=== PATIENT | male | born 1985 | race Caucasian/White ===

== ENCOUNTER → 2016-08-27 | Outpatient (CLI) | payer OTHER ==
--- NOTE | 2016-08-27 16:05 | CR ---
EXAMINATION: Left clavicle HISTORY: Fracture COMPARISON: None TECHNIQUE: 2 views FINDINGS/IMPRESSION: There is a comminuted mildly angulated and overlapping mid left clavicle fractu re identified. The remaining visualized osseous structures and joint spaces appear intact. Bone mine ralization is normal.
== END ==
LOC: MW.CHORTHO 11:04
PROVIDERS: ATTEND Orthopaedic Surgery
DX: S42.002A Fracture of unspecified part of left clavicle, initial encounter for closed fracture (principal)
CPT/HCPCS: 73000-26-LT; 73000-LT

== ENCOUNTER 2016-08-30 06:21 | Day surgery (SDC) | payer OTHER ==
[2016-08-30] MEDS ORDERED: Lidocaine 2% 5 ML SDV ONE (07:11)
[2016-08-30] MEDS ORDERED: Propofol 200 MG/20 ML SDV ONE ×2 (07:12→09:40)
[2016-08-30] MEDS ORDERED: fentaNYL 250 MCG/5 ML SDV ONE (07:12)
[2016-08-30] MEDS ORDERED: Midazolam 1 MG/ML 2 ML SDV ONE (07:12)
--- NOTE | 2016-08-30 07:28 | PCM.PREANE ---
Preanesthetic Assessment - Anesthesia/Transfusion/Family Hx Anesthesia History: No Prior Anesthesia Other Type of Anesthesia Reaction Comment: pt was adopted at age 4, does not know family hx Transfusion History: No Prior Transfusion(s) - Review of Systems General: No Symptoms Pulmonary: No Symptoms Cardiovascular: No Symptoms Gastrointestinal: No symptoms Neurological: No Symptoms Other: Reports: None - Physical Assessment O2 Sat by Pulse Oximetry: 99 Respiratory Rate: 16 Vital Signs: Last Vital Signs Temp 36.4 C 08/30/16 06:33 Pulse 69 08/30/16 06:33 Resp 16 08/30/16 06:33 BP 121/80 08/30/16 06:33 Pulse Ox 99 08/30/16 06:33 Height: 1.78 m Weight: 63.503 kg ASA Class: 1 Mental Status: Alert & Oriented x3 Airway Class: Mallampati = 1 Dentition: Reports: Normal Dentition Lungs: Clear to auscultation, Normal respiratory effort Cardiovascular: Regular Rate, Regular Rhythm - Allergies Allergies/Adverse Reactions: Allergies Allergy/AdvReac Type Severity Reaction Status Date / Time No Known Allergies Allergy Verified 08/28/16 14:29 - Blood Blood Available: Yes - Anesthesia Plan Pre-Op Medication Ordered: None - Acknowledgements Anesthesia Type Planned: General Anesthesia Pt an Appropriate Candidate for the Planned Anesthesia: Yes Alternatives and Risks of Anesthesia Discussed w Pt/Guardian: Yes Pt/Guardian Understands and Agrees with Anesthesia Plan: Yes PreAnesthesia Questionnaire Musculoskeletal History: Reports: Other (see below) Other Musculoskeletal History: injury to tip of rt index finger yrs ago, (no surgery needed, only stitches) - Past Surgical History Head Surgeries/Procedures: Reports: None HEENT Surgical History: Reports: LASIK, Oral surgery - SUBSTANCE USE Smoking Status *Q: Never Smoker Recreational Drug Use History: No - HOME MEDS Home Medications: Home Meds Hydrocodone/Acetaminophen [Hydrocodon-Acetaminophen 5-325] 1 tab PO ASDIRECTED PRN 08/28/16 [History] - CURRENT (IN HOUSE) MEDS Current Meds: Current Medications Discontinued Medications Fentanyl (Sublimaze) Confirm Administered Dose 250 mcg .ROUTE .STK-MED ONE Stop: 08/30/16 07:13 Lidocaine (Xylocaine-Mpf 2%) Confirm Administered Dose 10 ml .ROUTE .STK-MED ONE Stop: 08/30/16 07:12 Midazolam HCl (Versed 1 Mg/Ml) Confirm Administered Dose 2 mg .ROUTE .STK-MED ONE Stop: 08/30/16 07:13 Propofol (Diprivan 20 Ml) Confirm Administered Dose 400 mg .ROUTE .STK-MED ONE Stop: 08/30/16 07:13 Preanesthetic Assessment - ANESTHESIA/TRANSFUSION/FAMILY HX Other Type of Anesthesia Reaction Comment: pt was adopted at age 4, does not know family hx Family History of Anesthesia Reaction: No - PHYSICAL ASSESSMENT O2 Sat by Pulse Oximetry: 99 RR: 16 Vital Signs: Last Vital Signs Temp 36.4 C 08/30/16 06:33 Pulse 69 08/30/16 06:33 Resp 16 08/30/16 06:33 BP 121/80 08/30/16 06:33 Pulse Ox 99 08/30/16 06:33 Height: 1.78 m Weight: 63.503 kg - ALLERGIES Allergies/Adverse Reactions: Allergies Allergy/AdvReac Type Severity Reaction Status Date / Time No Known Allergies Allergy Verified 08/28/16 14:29
[2016-08-30] MEDS ORDERED: Bupivacaine 0.25%/EPINEPHrine 1:200,000 10 ML SDV ONE (07:34)
[2016-08-30] MEDS ORDERED: Clindamycin Phosphate in D5W 600 MG in Premix Bag 1 BAG IV ONE ×2 (07:59)
[2016-08-30] MEDS ORDERED: Acetaminophen/HYDROcodone 325-5 MG Tab PO PRN (07:59)
[2016-08-30] MEDS ORDERED: Lactated Ringers 1,000 ML IV SCH (08:00)
[2016-08-30] MEDS ORDERED: fentaNYL 100 MCG/2 ML SDV ONE (08:59)
[2016-08-30] MEDS ORDERED: ePHEDrine 50 MG/ML SDV ONE (09:09)
[2016-08-30] MEDS ORDERED: Phenylephrine/Normal Saline 100 MCG/ML 10 ML Syringe ONE (09:09)
[2016-08-30] MEDS ORDERED: fentaNYL 100 MCG/2 ML SDV IVPUSH PRN (09:54)
[2016-08-30] MEDS ORDERED: HYDROmorphone 2 MG/ML Syringe IVPUSH ONE (09:58)
[2016-08-30] MEDS ORDERED: Acetaminophen/HYDROcodone 325-10 MG Tab PO PRN (10:08)
--- NOTE | 2016-08-30 10:23 | PCM.OPNOTE ---
- General Post-Op/Procedure Note Date of Surgery/Procedure: 08/30/16 Operative Procedure(s): ORIF L clavicle Post-Op Diagnosis: L clavicle fracture Anesthesia Technique: General ET tube Primary Surgeon: Vianey Odell Sandblaster Supervisor: Saba Giordano in mLs: 10 Condition: Good Free Text/Narrative:: [id number]
--- NOTE | 2016-08-30 10:30 | CR ---
EXAMINATION: Left clavicle HISTORY: ORIF COMPARISON: 08/27/2016 TECHNIQUE: 4 views FINDINGS/IMPRESSION: Operative control films demonstrate screw and plate fixation of a comminuted mi d left clavicle fracture. Position and alignment appears near-anatomic.
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
--- NOTE | 2016-08-30 12:16 | PCM48HPAN ---
Post Anesthesia Note - EVALUATION WITHIN 48HRS OF ANESTHETIC Vital Signs in Normal Range: Yes Patient Participated in Evaluation: Yes Respiratory Function Stable: Yes Airway Patent: Yes Cardiovascular Function Stable: Yes Hydration Status Stable: Yes Pain Control Satisfactory: Yes Nausea and Vomiting Control Satisfactory: Yes Mental Status Recovered: Yes
--- NOTE | 2016-08-30 12:16 | PCM.POSTAN ---
POST ANESTHESIA ASSESSMENT - MENTAL STATUS Mental Status: alert, oriented - RESPIRATORY Respiratory Status: respiratory rate WNL, airway patent - CARDIOVASCULAR CV Status: pulse rate WNL, blood pressure stable - GASTROINTESTINAL GI Status: no symptoms - PAIN Pain Score: 0 - POST OP HYDRATION Hydration Status: adequate & stable
[2016-08-30 12:26] VITALS: BP 120/72
== END 2016-08-30 12:25 | disposition home or self-care (01) ==
LOC: MW.SDS 06:21
PROVIDERS: ATTEND Orthopaedic Surgery
PROC: 0PSB04Z Reposition Left Clavicle with Internal Fixation Device, Open Approach (ICD-10-PCS; principal; 2016-08-30)
DX: S42.022A Displaced fracture of shaft of left clavicle, initial encounter for closed fracture (principal); Z88.0 Allergy status to penicillin; Z98.890 Other specified postprocedural states
CPT/HCPCS: 23515; 76001; J2250; J3010; 00450; C1713; J2704

== ENCOUNTER → 2016-10-08 | Outpatient (CLI) | payer OTHER ==
--- NOTE | 2016-10-08 13:08 | CR ---
EXAMINATION: Left clavicle HISTORY: Fracture COMPARISON: 08/27/2016 TECHNIQUE: 2 views FINDINGS/IMPRESSION: There is screw and plate fixation of a mid left clavicle fracture in anatomic a lignment. The remaining osseous structures and joint spaces appear intact.
== END ==
LOC: MW.CHORTHO 07:00
PROVIDERS: ATTEND Orthopaedic Surgery
DX: S42.002A Fracture of unspecified part of left clavicle, initial encounter for closed fracture (principal); Z96.7 Presence of other bone and tendon implants
CPT/HCPCS: 73000-26-LT; 73000-LT

== ENCOUNTER 2017-05-21 10:33 | Day surgery (SDC) | payer OTHER ==
[~2017-05-21 10:33] MED LIST: Acetaminophen/HYDROcodone 325-5 MG Tab PO PRN; Clindamycin Phosphate in D5W 600 MG in Premix Bag 50 BAG IV SCH; Lactated Ringers 1,000 ML IV SCH
--- NOTE | 2017-05-21 12:18 | PCM.PREANE ---
Preanesthetic Assessment - Procedure Proposed Procedure: Removal left clavicle hardware - Anesthesia/Transfusion/Family Hx Anesthesia History: Prior Anesthesia Without Reaction Other Type of Anesthesia Reaction Comment: pt was adopted at age 4, does not know family hx Family History of Anesthesia Reaction: No Transfusion History: No Prior Transfusion(s) Intubation History: Unknown Additional History: Hx of nausea after earlier surgeries - Review of Systems General: No Symptoms Pulmonary: No Symptoms Cardiovascular: No Symptoms Gastrointestinal: No Symptoms Neurological: No Symptoms Other: Reports: None - Physical Assessment NPO Status Date: 05/20/17 NPO Status Time: 23:00 O2 Sat by Pulse Oximetry: 97 Respiratory Rate: 12 Vital Signs: Last Vital Signs Temp 99.0 F 05/21/17 10:45 Pulse 62 05/21/17 10:45 Resp 12 05/21/17 10:45 BP 109/72 05/21/17 10:45 Pulse Ox 97 05/21/17 10:45 Height: 5 ft 10 in Weight: 141 lb ASA Class: 1 Mental Status: Alert & Oriented x3 Airway Class: Mallampati = 1 Dentition: Reports: Normal Dentition Thyro-Mental Finger Breadths: 3 Mouth Opening Finger Breadths: 3 ROM/Head Extension: Full Lungs: Clear to Auscultation, Normal Respiratory Effort Cardiovascular: Regular Rate, Regular Rhythm, No Murmurs - Allergies Allergies/Adverse Reactions: Allergies Allergy/AdvReac Type Severity Reaction Status Date / Time amoxicillin Allergy Rash Verified 05/16/17 08:10 - Blood Blood Available: No Product(s) Available: None - Acknowledgements Anesthesia Type Planned: General Anesthesia (LMA) Pt an Appropriate Candidate for the Planned Anesthesia: Yes Alternatives and Risks of Anesthesia Discussed w Pt/Guardian: Yes Pt/Guardian Understands and Agrees with Anesthesia Plan: Yes PreAnesthesia Questionnaire Musculoskeletal History: Reports: Fracture Other Musculoskeletal History: left clavicle Neurological History: Reports: Other (See Below) Other Neuro History: hx of motion sickness Other Dermatologic History: rashes from dry skin - Past Surgical History Head Surgeries/Procedures: Reports: None HEENT Surgical History: Reports: LASIK, Oral Surgery Other HEENT Surgeries/Procedures: removal of wisdom teeth Musculoskeletal Surgical History: Reports: ORIF Other Musculoskeletal Surgeries/Procedures:: left clavicle - SUBSTANCE USE Smoking Status *Q: Never Smoker Recreational Drug Use History: No - HOME MEDS Home Medications: Home Meds . [No Known Home Meds] 05/16/17 [History] - CURRENT (IN HOUSE) MEDS Current Meds: Current Medications Hydrocodone Bitart/Acetaminophen ([place] 325-5 Mg) 1 - 2 tab PO Q4H PRN PRN Reason: Pain Clindamycin Phosphate 600 mg/ (Premix) 50 mls @ 100 mls/hr IV ONCALL MATEO Lactated Ringer's (Ringers, Lactated) 1,000 mls @ 100 mls/hr IV ASDIRECTED MATEO
[2017-05-21] MEDS ORDERED: Bupivacaine 0.25% 10 ML SDV ONE (13:25)
[2017-05-21] MEDS ORDERED: Propofol 200 MG/20 ML SDV ONE ×2 (14:04→14:05)
[2017-05-21] MEDS ORDERED: Midazolam 1 MG/ML 2 ML SDV ONE (14:05)
[2017-05-21] MEDS ORDERED: fentaNYL 250 MCG/5 ML SDV ONE (14:05)
[2017-05-21] MEDS ORDERED: Rocuronium 10 MG/ML 10 ML Syringe ONE (14:16)
[2017-05-21] MEDS ORDERED: Ketorolac 30 MG/ML SDV ONE (14:16)
[2017-05-21] MEDS ORDERED: Ondansetron 4 MG/2 ML SDV ONE ×2 (14:16→14:50)
[2017-05-21] MEDS ORDERED: Neostigmine Methylsulfate 1 MG/ML 5 ML Syringe ONE (14:16)
[2017-05-21] MEDS ORDERED: fentaNYL 100 MCG/2 ML SDV IVPUSH PRN (14:47)
--- NOTE | 2017-05-21 15:27 | PCM.OPNOTE ---
- General Post-Op/Procedure Note Date of Surgery/Procedure: 05/21/17 Operative Procedure(s): HWR left clavicle Post-Op Diagnosis: Painful retained HW R clavicle Anesthesia Technique: General ET Tube Primary Surgeon: Vianey Odell Body Welder: Manish Kline in mLs: 10 Condition: Good Free Text/Narrative:: #[id number]
--- NOTE | 2017-05-21 16:02 | PCM.POSTAN ---
POST ANESTHESIA ASSESSMENT - MENTAL STATUS Mental Status: Alert, Oriented - VITAL SIGNS Pulse Rate: 63 SaO2: 98 (room air) Resp Rate: 16 Blood Pressure: 119/83 - RESPIRATORY Respiratory Status: Respiratory Rate WNL, Airway Patent, O2 Saturation Stable - CARDIOVASCULAR CV Status: Pulse Rate WNL, Blood Pressure Stable - GASTROINTESTINAL GI Status: No Symptoms - PAIN Pain Score: 0 - POST OP HYDRATION Hydration Status: Adequate & Stable
[2017-05-21 16:44] VITALS: BP 123/84
--- NOTE | 2017-05-21 16:59 | CR ---
EXAMINATION: Left clavicle HISTORY: Hardware removal COMPARISON: 04/24/2017 TECHNIQUE: Single view FINDINGS/IMPRESSION: Operative control films demonstrate interval removal of left clavicle screw and plate hardware.
--- NOTE | 2017-05-21 19:07 | OR ---
SURGEON: Vianey Odell MD DATE OF PROCEDURE: 05/21/2017 PREOPERATIVE DIAGNOSIS: Painful retained hardware, left clavicle, status post open reduction and internal fixation. POSTOPERATIVE DIAGNOSIS: Painful retained hardware, left clavicle, status post open reduction and internal fixation. PROCEDURE: Hardware removal, left clavicle, deep implant. FORM WORKER: Manish Kline PA-C. ANESTHESIA: General. ESTIMATED BLOOD LOSS: 10 mL. TOURNIQUET TIME: Zero minutes. COMPLICATIONS: None. DVT PROPHYLAXIS: Not indicated. IMPLANTS USED: None. BRIEF HISTORY: Chris is a 32-year-old male, who previously underwent open reduction and internal fixation of a left clavicle fracture. He continued to be bothered by pain over the fracture site over the hardware. The fracture appeared to be well healed. I recommended removal of the hardware. The risks and goals of procedure were discussed with the patient and were documented preoperatively. He agreed to proceed. DESCRIPTION OF PROCEDURE: The patient was properly identified and brought to the operating room. He was transferred from the OR cart and placed on the operating room table in supine position. General anesthesia was administered. After adequate anesthesia was obtained, the left upper extremity was prepped in standard fashion using ChloraPrep solution. It was then sterilely draped. A time-out was performed to ensure correct site and procedure. Preoperative antibiotics were given. The surgical site had been marked preoperatively. An incision was made over the site of the previous incision. The subcutaneous tissues were dissected down. The hardware was readily apparent as he had very thin overlying skin. The screws were then identified. They were removed without difficulty. The plate was also removed. The fracture site was exposed and the fracture site was then examined. This appeared to be well healed, I did not note any movement at the fracture site. C-arm images confirmed removal of the hardware. I did check the stability of the fracture using live fluoroscopy and did not note any movement at the fracture site. The wound was then copiously irrigated with saline solution. 0 Vicryl was used to close the layer overlying the bone. The subcutaneous tissues were closed with 2-0 Monocryl and the skin was closed with a running 4-0 Monocryl suture. Steri-Strips and Benzoin were applied. Lidocaine 1% was injected along the incision site. Xeroform gauze was placed over the wound and a bulky dressing was applied. He was awakened from his anesthetic and transferred back to the operating room cart. He was brought to recovery room in stable condition. All needle and sponge counts were correct. FABI / DEANNA /[id number]
== END 2017-05-21 16:45 | disposition home or self-care (01) ==
LOC: MW.SDS 10:33
PROVIDERS: ATTEND Orthopaedic Surgery
DX: T84.84XA Pain due to internal orthopedic prosthetic devices, implants and grafts, initial encounter (principal); Z88.0 Allergy status to penicillin; Z98.890 Other specified postprocedural states
CPT/HCPCS: 20680; 76000; 88300; J1885; J2250; J2405; J3010; J7120; 00450; J2704